=== PATIENT | female | born 1965 | race Caucasian/White ===

== ENCOUNTER 2021-06-16 18:50 | Emergency (ER) | payer MEDICAID ==
[~2021-06-16] VITALS: Ht 170.2 cm; Wt 45.0 kg
[2021-06-16] MEDS ORDERED: MUPI22OI30 TOP (22:48)
[2021-06-16] MEDS ORDERED: DOXY100C76 PO (22:48)
[2021-06-16] MEDS ORDERED: METR-159 PO (22:48)
[2021-06-16] MEDS ORDERED: metroNIDAZOLE 500mg tablet PO ONE (22:50)
[2021-06-16 23:15] VITALS: BP 115/79
== END 2021-06-16 23:32 | disposition home or self-care (01) ==
LOC: ER 18:51
DX: N76.0 Acute vaginitis (principal); Z79.2 Long term (current) use of antibiotics; Z59.00 Homelessness unspecified
CPT/HCPCS: 99283

== ENCOUNTER 2021-08-08 13:32 | Emergency (ER) | payer MEDICAID ==
[~2021-08-08] VITALS: Ht 170.2 cm; Wt 45.0 kg
[2021-08-08 13:59] VITALS: BP 150/101
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
--- NOTE | 2021-08-08 14:03 | NUR ---
Pt admits to meth use today.
[2021-08-08] MEDS ORDERED: HYDR-3972 PO (16:26)
== END 2021-08-08 17:42 | disposition home or self-care (01) ==
LOC: ER 13:34
DX: S90.512A Abrasion, left ankle, initial encounter (principal); F17.210 Nicotine dependence, cigarettes, uncomplicated; Z59.00 Homelessness unspecified; V49.9XXA Car occupant (driver) (passenger) injured in unspecified traffic accident, initial encounter; Y93.89 Activity, other specified; Y92.89 Other specified places as the place of occurrence of the external cause; Y99.8 Other external cause status
CPT/HCPCS: 73610; 99283

== ENCOUNTER 2021-10-19 22:03 | Emergency (ER) | payer MEDICAID ==
[~2021-10-19] VITALS: Ht 170.2 cm; Wt 47.7 kg
[2021-10-19 22:11] VITALS: BP 145/87
[2021-10-20] MEDS ORDERED: diazepam 5mg tablet PO ONE (00:50)
[2021-10-20 01:20] LABS: URINE HCG NEGATIVE (NEG)
[2021-10-20 01:28] LABS: CLARITY,URINE SLIGHTLY CLOUDY (Clear); COLOR,URINE YELLOW (Yellow); GLUCOSE, URINE NEGATIVE (Neg); KETONES,URINE NEGATIVE (Neg); LEUKOCYTE ESTERASE ,URINE NEGATIVE (Neg); NITRITES, URINE NEGATIVE (Neg); OCCULT BLOOD,URINE NEGATIVE (Neg); PH,URINE 6.5 (4.8-8.0); PROTEIN,URINE NEGATIVE (Neg)
[2021-10-20 01:34] LABS: UA COLLECTION TYPE VOIDED
[2021-10-20] MEDS ORDERED: CefTRIAXone 500MG IM Kit w/LIDOcaine IM ONE (01:35)
[2021-10-20 01:36] LABS: BACTERIA,URINE 1+ /HPF (Neg); MUCUS STRANDS MANY /LPF (Neg); RBC,URINE NONE SEEN /HPF (0-2); SQUAMOUS EPITHELIAL CELL,UR MANY /LPF (FEW)
[2021-10-20] MEDS ORDERED: DOXYCYCLINE 100MG CAPSULE PO STA (01:37)
[2021-10-20] MEDS ORDERED: DOXY-1 PO (04:09)
== END 2021-10-20 04:55 | disposition home or self-care (01) ==
LOC: ER 22:04
DX: A64 Unspecified sexually transmitted disease (principal); F17.200 Nicotine dependence, unspecified, uncomplicated; Z59.00 Homelessness unspecified
CPT/HCPCS: 81001; 81025; 96372; 99283; J0696

== ENCOUNTER 2021-11-03 00:16 | Emergency (ER) | payer MEDICAID ==
[~2021-11-03] VITALS: Ht 170.2 cm; Wt 45.0 kg
[2021-11-03] MEDS ORDERED: IBUP-1985 PO (00:54)
[2021-11-03 01:03] VITALS: BP 128/92
== END 2021-11-03 01:05 | disposition home or self-care (01) ==
LOC: ER 00:18
DX: M54.2 Cervicalgia (principal); M25.512 Pain in left shoulder; Z59.00 Homelessness unspecified; Z79.899 Other long term (current) drug therapy
CPT/HCPCS: 99282

== ENCOUNTER 2022-05-02 09:20 | Emergency (ER) | payer MEDICAID ==
[~2022-05-02] VITALS: Ht 167.6 cm; Wt 47.0 kg
[~2022-05-02 09:20] MED LIST: IBUP-1985 PO
[2022-05-02 09:48] VITALS: BP 163/91
[2022-05-02] MEDS ORDERED: PENICILLIN G BENZATHINE 2,400,000 UNIT/4 ML SYRINGE IM ONE (11:25)
[2022-05-02 11:41] LABS: URINE HCG NEGATIVE (NEG)
== END 2022-05-02 12:15 | disposition home or self-care (01) ==
LOC: ER 09:20
DX: A64 Unspecified sexually transmitted disease (principal); F17.200 Nicotine dependence, unspecified, uncomplicated; F15.10 Other stimulant abuse, uncomplicated; Z79.899 Other long term (current) drug therapy
CPT/HCPCS: 36415; 81025; 86592; 87491; 87591; 96372; 99284; J0561; 99283

== ENCOUNTER 2022-10-11 12:36 | Emergency (ER) | payer MEDICAID ==
[~2022-10-11] VITALS: Ht 170.2 cm; Wt 50.6 kg
[2022-10-11 12:44] VITALS: BP 115/79
[2022-10-11] MEDS ORDERED: ibuprofen 200mg tablet PO ONE (15:45)
[2022-10-11] MEDS ORDERED: CYCL-1 PO (16:44)
== END 2022-10-11 17:04 | disposition home or self-care (01) ==
LOC: ER 12:36
DX: S16.1XXA Strain of muscle, fascia and tendon at neck level, initial encounter (principal); M54.2 Cervicalgia; F15.10 Other stimulant abuse, uncomplicated; Z59.00 Homelessness unspecified; Z79.899 Other long term (current) drug therapy; X58.XXXA Exposure to other specified factors, initial encounter; Y93.89 Activity, other specified; Y92.89 Other specified places as the place of occurrence of the external cause; Y99.8 Other external cause status
CPT/HCPCS: 72040; 73030; 99284

== ENCOUNTER 2023-06-04 12:27 | Emergency (ER) | payer MEDICAID ==
[~2023-06-04] VITALS: Ht 165.1 cm; Wt 46.5 kg
[~2023-06-04 12:27] MED LIST changes: +CYCL-1 PO
[2023-06-04] MEDS ORDERED: SULF1TAB49 PO (12:42)
[2023-06-04] MEDS ORDERED: LIDOCAINE 1%/EPI 1:100,000 inj. 10 ML multi-dose vial IJ ONE (13:55)
[2023-06-04 15:04] VITALS: BP 136/79; PULSE 91; RESP 16; TEMP 98.4; O2SAT 98
== END 2023-06-04 15:00 | disposition home or self-care (01) ==
LOC: ER 12:29
DX: L02.31 Cutaneous abscess of buttock (principal); F15.10 Other stimulant abuse, uncomplicated; Z79.899 Other long term (current) drug therapy
CPT/HCPCS: 10060; 10061; 87070; 87077; 87186; 99283; 99284; A6449

== ENCOUNTER 2024-02-10 18:01 | Emergency (ER) | payer MEDICAID ==
[~2024-02-10] VITALS: Ht 170.2 cm; Wt 47.7 kg
[2024-02-10] MEDS ORDERED: SULF1TAB49 PO (19:07)
[2024-02-10 19:12] VITALS: BP 120/60; PULSE 87; RESP 16; TEMP 98.9; O2SAT 98
== END 2024-02-10 19:15 | disposition home or self-care (01) ==
LOC: ER 18:02
DX: L02.416 Cutaneous abscess of left lower limb (principal); Z79.899 Other long term (current) drug therapy; Z79.1 Long term (current) use of non-steroidal anti-inflammatories (NSAID); Z79.2 Long term (current) use of antibiotics; Z90.710 Acquired absence of both cervix and uterus
CPT/HCPCS: 99283